=== PATIENT | female | born 1980 | race Caucasian/White ===

== ENCOUNTER 2019-04-25 16:22 | Inpatient (IN) | payer OTHER ==
[~2019-04-25] VITALS: Ht 152.4 cm; Wt 3.2 kg
[2019-05-20] MEDS ORDERED: SYNTHROID50 MCG PO (07:48)
[2019-05-20] MEDS ORDERED: FORTAMET1000 MG PO (07:49)
[2019-05-23] MEDS ORDERED: OXYC1TAB9 PO (08:12)
[2019-05-23] MEDS ORDERED: KETO10TA2 PO (08:12)
== END 2019-05-23 14:07 | disposition home or self-care (01) | DRG 788 ==
LOC: OB/GYN 05-20 06:36 → LDR 05-20 06:36 → OB/GYN 05-20 15:30
PROVIDERS: ADMIT Obstetrics & Gynecology Maternal & Fetal Medicine
PROC: 3E033VJ Introduction of Other Hormone into Peripheral Vein, Percutaneous Approach (ICD-10-PCS; 2019-05-20)
PROC: 4A1HXCZ Monitoring of Products of Conception, Cardiac Rate, External Approach (ICD-10-PCS; 2019-05-20)
PROC: 10D00Z1 Extraction of Products of Conception, Low, Open Approach (ICD-10-PCS; principal; 2019-05-20 17:00)
DX: O82 Encounter for cesarean delivery without indication (principal); O65.4 Obstructed labor due to fetopelvic disproportion, unspecified; Z3A.40 40 weeks gestation of pregnancy; Z37.0 Single live birth

== ENCOUNTER 2019-05-14 10:43 | Outpatient (CLI) | payer OTHER | END 2019-05-14 13:42 | disposition home or self-care (01) | LOC: NST 10:43 | DX: Z34.83 Encounter for supervision of other normal pregnancy, third trimester (principal) ==

== ENCOUNTER 2019-05-19 10:10 | Outpatient (CLI) | payer OTHER ==
[2019-05-20] MEDS ORDERED: SYNTHROID50 MCG PO (07:48)
[2019-05-20] MEDS ORDERED: FORTAMET1000 MG PO (07:49)
== END 2019-05-19 11:52 | disposition home or self-care (01) ==
LOC: NST 10:10
DX: Z34.83 Encounter for supervision of other normal pregnancy, third trimester (principal)

== ENCOUNTER 2019-07-22 09:40 | Outpatient (CLI) | payer OTHER ==
[~2019-07-22 09:40] MED LIST: FORTAMET1000 MG PO; KETO10TA2 PO; OXYC1TAB9 PO; SYNTHROID50 MCG PO
== END 2019-07-22 09:45 | disposition home or self-care (01) ==
LOC: SONOGRAMA 09:40 → MAMO-SONO 09:45 → SONOGRAMA 09:45
DX: E04.8 Other specified nontoxic goiter (principal)

== ENCOUNTER 2021-09-22 12:09 | Outpatient (CLI) | payer OTHER | END 2021-09-22 12:25 | disposition home or self-care (01) | LOC: SONOGRAMA 12:09 | PROVIDERS: ATTEND Internal Medicine Endocrinology, Diabetes & Metabolism | DX: E04.8 Other specified nontoxic goiter (principal) ==

== ENCOUNTER 2022-08-21 09:37 | Outpatient (CLI) | payer OTHER | END 2022-08-21 09:45 | disposition home or self-care (01) | LOC: MAMO-SONO 09:37 | PROVIDERS: ATTEND Obstetrics & Gynecology Maternal & Fetal Medicine | DX: Z12.31 Encounter for screening mammogram for malignant neoplasm of breast (principal); N63.0 Unspecified lump in unspecified breast; N64.4 Mastodynia; N60.11 Diffuse cystic mastopathy of right breast ==